=== PATIENT | male | born 1995 | race Caucasian/White ===

== ENCOUNTER 2020-12-11 18:18 | Emergency (ER) | payer OTHER ==
[2020-12-11 19:49] LABS: BASOPHIL 0.6 % (0-2); HCT 42.7 % (42.0-52.0); HGB 14.2 g/dl (13.2-18.0); LYMPHOCYTE 12.3 % (15-48); MCH 29.3 pg (25.0-31.0); MCHC 33.3 g/dL (32.0-36.0); MONOCYTE 7.8 % (0-12); MPV 10.6 fL (6.0-9.5); NEUTROPHIL 77.8 % (41-80); NRBC 0; PLT 355 K/uL (150-400); RBC 4.85 M/uL (4.70-6.00); RDW 12.5 % (11.5-14.0); WBC 15.8 K/uL (4.0-10.5)
[2020-12-11 20:06] LABS: ALBUMIN 2.8 g/dL (3.4-5.0); BILIRUBIN - TOTAL 0.9 mg/dL (0.2-1.0); BUN/CREAT RATIO (CALC) 13.1 RATIO; CREATININE 0.84 mg/dL (0.67-1.17); GLOBULIN (CALCULATION) 4.9 g/dL; POTASSIUM 4.1 mmol/L (3.5-5.1); TOTAL PROTEIN 7.7 g/dL (6.4-8.2)
[2020-12-11 21:56] LABS: LACTIC ACID 1.1 mmol/L (0.4-1.9)
[2020-12-11 22:21] LABS: BILIRUBIN 1+ mg/dL (NEGATIVE); BLOOD NEGATIVE Ery/uL (NEGATIVE); CLARITY CLEAR (CLEAR); COLOR YELLOW (YELLOW); GLUCOSE (U) NORMAL (NORMAL); LEUKOCYTES NEGATIVE Leu/uL (NEGATIVE); NITRITE NEGATIVE (NEGATIVE); PROTEIN NEGATIVE (NEGATIVE); SPECIFIC GRAVITY <=1.005 (1.001-1.030)
[2020-12-11 22:25] LABS: AMPHETAMINES NEGATIVE (NEGATIVE); BARBITURATES NEGATIVE (NEGATIVE); ECSTASY (MDMA) NEGATIVE (NEGATIVE); MARIJUANA (THC) NEGATIVE (NEGATIVE); METHADONE NEGATIVE (NEGATIVE); OPIATES NEGATIVE (NEGATIVE); OXYCODONE NEGATIVE (NEGATIVE)
[2020-12-12] MEDS ORDERED: VENTOLIN HFA18 GM INH (00:02)
[2020-12-12] MEDS ORDERED: ZOFRAN4 M1 PO (00:02)
== END 2020-12-12 00:40 | disposition home or self-care (01) ==
LOC: FER 18:18
PROVIDERS: Nurse Practitioner Family
DX: E86.0 Dehydration (principal); R11.2 Nausea with vomiting, unspecified; Z88.5 Allergy status to narcotic agent
CPT/HCPCS: 36415; 80053; 80305; 81003; 83605; 85025; J7030; Q9967